=== PATIENT | female | born 1985 | race Caucasian/White ===

== ENCOUNTER 2017-12-15 06:36 | Emergency (ER) | payer OTHER ==
[~2017-12-15] VITALS: Ht 152.4 cm; Wt 68.2 kg
[2017-12-15 06:59] LABS: GLUCOSE,POINT OF CARE 154 MG/DL (70-110)
[2017-12-15] MEDS ORDERED: IBUPROFEN 600 MG TABLET PO ONE (08:30)
[2017-12-15 09:09] VITALS: BP 139/78
== END 2017-12-15 09:09 | disposition home or self-care (01) ==
LOC: EMS 06:38
DX: M25.561 Pain in right knee (principal); E11.9 Type 2 diabetes mellitus without complications; M92.50 Unspecified juvenile osteochondrosis of tibia and fibula; F17.210 Nicotine dependence, cigarettes, uncomplicated
CPT/HCPCS: 99284

== ENCOUNTER 2018-08-13 09:47 | Emergency (ER) | payer OTHER ==
[~2018-08-13] VITALS: Ht 154.9 cm; Wt 72.7 kg
[2018-08-13] MEDS ORDERED: IBUPROFEN 800 MG TABLET PO ONE (10:45)
[2018-08-13 11:25] VITALS: BP 133/79
== END 2018-08-13 11:40 | disposition home or self-care (01) ==
LOC: EMS 09:49
DX: S93.492A Sprain of other ligament of left ankle, initial encounter (principal); S90.32XA Contusion of left foot, initial encounter; E11.9 Type 2 diabetes mellitus without complications; F12.90 Cannabis use, unspecified, uncomplicated; Z88.0 Allergy status to penicillin; X50.9XXA Other and unspecified overexertion or strenuous movements or postures, initial encounter; Y93.39 Activity, other involving climbing, rappelling and jumping off; Y92.89 Other specified places as the place of occurrence of the external cause; Y99.8 Other external cause status